=== PATIENT | male | born 1935 | race Caucasian/White ===

== ENCOUNTER 2017-07-22 14:37 | Observation (INO) ==
[2017-07-22 16:21] LABS: Basophils % 0.2 %; Eosinophils % 0.4 %; Hematocrit 33.5 % (37.5-50.1); Hemoglobin 11.3 g/dL (12.9-16.9); Immature Granulocytes % 0.3 % (0-4); Lymphocytes # 0.8 K/mcL (0.6-4.6); Mean Corpuscular HGB Conc 33.7 g/dL (31.6-35.5); Mean Corpuscular Hemoglobin 30.1 pg (28.0-33.3); Mean Corpuscular Volume 89.3 fL (83.0-100.0); Monocytes % 11.2 %; Neutrophils # 7.2 K/mcL (1.6-8.9); Platelet Count 193 K/mcL (140-400); Red Blood Count 3.75 M/mcL (4.19-5.50); Red Cell Distribution Width 14.7 % (11.5-14.5); Segmented Neutrophils % 78.9 %
[2017-07-22 16:53] LABS: Albumin 3.5 g/dL (3.5-5.7); Albumin/Globulin Ratio 1.3 (1.1-2.2); Bilirubin,Direct 0.2 mg/dL (0.0-0.2); Bilirubin,Indirect 0.7 mg/dL (0.0-1.2); Bilirubin,Total 0.9 mg/dL (0.3-1.0); Calcium 8.9 mg/dL (8.6-10.3); Globulin 2.6 g/dL (2.4-3.5); Potassium 4.7 mEq/L (3.5-5.1); Total Protein 6.1 g/dL (6.4-8.9)
[2017-07-22] MEDS ORDERED: 0.9 % Sodium Chloride 1,000 ML IVC ONE (17:33)
--- NOTE | 2017-07-22 17:51 | Emergency Department Note ---
Disposition Clinical Impression: Hyponatremia, Acute renal insufficiency Disposition: Admitted As Inpatient Condition: Good Referrals: Keyshawn Dillon MD [Primary Care Provider] - Time of Disposition: 17:30 General Adult HPI - General Chief complaint: ED Abdominal Pain Stated complaint: fall Time Seen by Provider: 07/22/17 14:41 Source: patient, EMS Mode of arrival: EMS Limitations: no limitations Nursing Notes Reviewed: Yes Vital Signs Reviewed: Yes - History of Present Illness HPI Narrative: 41-year-old male presents emergency department for further evaluation of multiple falls and cramping" and abdominal pain. Patient states he was moving a large piece of equipment onto his trailer 3 days ago when he had acute onset of pain to his right lower extremity. Patient fell to the ground but did not hit his head or have loss of consciousness. The pain in his leg improved within a few minutes and he was able to walk. Patient states that he has had cramping of the legs in the past. The day after moving this large piece of equipment the patient had pain to the right side of his abdomen, worse with movement and ambulation. Patient took a tramadol which helped significantly with his pain. Today the patient had not taken any pain medication prior to arrival. He has pain with ambulation and with movement however he does not have pain if remaining still or to palpation of his abdomen. Patient denies hematochezia, melena, fever, chills, chest pain, shortness of breath. Patient denies hitting his head or having loss of consciousness. Patient had another cramp in his legs today which causes him to fall to the ground, he again did not hit his head or have loss of consciousness. The cramping improved after a few seconds and he was then able to ambulate. Family encouraged him to be evaluated in the emergency department. Pain Scale: 7 - Related Data Previous Rx's Medication Instructions Recorded Colchicine [Colcrys] 0.6 mg PO Q12H #3 tablet 05/16/17 Tramadol HCl [Ultram] 50 mg PO Q8H PRN 3 Days #10 tab 05/16/17 Allergies Allergy/AdvReac Type Severity Reaction Status Date / Time No Known Allergies Allergy Verified 05/15/17 21:00 All systems ED: reviewed and negative except as stated. Review of Systems: As Per HPI Past Medical History - Past Medical History Attestation: Yes The following information was validated with the patient. Source: patient Medical history: Reports: arthritis, hypertension, other Psychiatric history: Reports: no psych history - Social History Smoking Status: Former smoker Smokeless Tobacco Status: Yes Alcohol use: Reports: none, occasionally Drug use: Reports: none Physical Exam General: Alert and in no acute distress Skin: Warm, dry, mild abrasion to the right posterior arm Head: Normocephalic and atraumatic Neck: Supple, trachea midline and no tenderness Cardiovascular: RRR, no murmur, normal perfusion Respiratory: CTAB, no wheezing, cough, or respiratory distress Musculoskeletal: Normal strength, no tenderness, swelling or deformity GI: Soft, nontender, nondistended. Bowel sounds present Neuro: A&O to person, place, time and situation. No focal deficits noted on exam Psychiatric: cooperative and appropriate mood and affect. - General Limitations: no limitations General appearance: alert, in no apparent distress Course Vital Signs Temperature 98.5 F 07/22/17 14:40 Pulse Rate 103 07/22/17 14:40 Respiratory Rate 14 07/22/17 14:40 Blood Pressure 111/49 07/22/17 14:40 O2 Sat by Pulse Oximetry 93 07/22/17 14:40 Temperature 98.5 F 07/22/17 14:40 Pulse Rate 59 07/22/17 16:56 Respiratory Rate 16 07/22/17 16:56 Blood Pressure 112/46 07/22/17 16:56 O2 Sat by Pulse Oximetry 98 07/22/17 16:56 Oxygen Delivery Oxygen Delivery Nasal Cannula Medical Decision Making - MDM Narrative Medical decision making narrative: Pain to the abdomen is likely muscular wall strain as he does not have pain with remaining still. There is no evidence of hernia on my exam. Vital signs are within normal limits. Laboratory evaluation was obtained secondary to the cramping which shows hyponatremia. I spoke with the nurse practitioner covering for Dr. Dillon who reported the renal function was within normal limits 2 months ago. She also states he had a sodium level of 144 2 months ago as well. Patient has a significant change his renal function. He may be dehydrated however we will give IV fluids and he will be admitted to the hospital for further care and evaluation. - Medical Records Medical records reviewed: Yes I reviewed the patient's medical records. - Lab Data Lab results reviewed: Yes I reviewed the patient's lab results. Result diagrams: 07/22/17 15:59 07/22/17 15:59 Lab Results 07/22/17 07/22/17 07/22/17 Range/Units 15:59 15:59 15:59 WBC 9.1 (4.3-11.1) K/mcL RBC 3.75 L (4.19-5.50) M/mcL Hgb 11.3 L (12.9-16.9) g/dL Hct 33.5 L (37.5-50.1) % MCV 89.3 (83.0-100.0) fL MCH 30.1 (28.0-33.3) pg MCHC 33.7 (31.6-35.5) g/dL RDW 14.7 H (11.5-14.5) % Plt Count 193 (140-400) K/mcL MPV 10.0 (9.4-12.4) fL Immature Gran % 0.3 (0-4) % Seg Neutrophils % 78.9 % Lymphocytes % 9.0 % Monocytes % 11.2 % Eosinophils % 0.4 % Basophils % 0.2 % Neutrophils # 7.2 (1.6-8.9) K/mcL Lymphocytes # 0.8 (0.6-4.6) K/mcL Monocytes # 1.0 (0.0-1.3) K/mcL Eosinophils # 0.0 (0.0-0.6) K/mcL Basophils # 0.0 (0.0-0.2) K/mcL Sodium 128 L (136-145) mEq/L Potassium 4.7 (3.5-5.1) mEq/L Chloride 98 (98-107) mEq/L Carbon Dioxide 23 (23-29) mEq/L BUN 21 (8-23) mg/dL Creatinine 1.72 H (0.70-1.30) mg/dL Est GFR ( Amer) 47 L (> 60) Est GFR (Non-Af Amer) 39 L (> 60) BUN/Creatinine Ratio 12 (6-26) Glucose 94 (70-105) mg/dL Calculated Osmolality 269 L (280-300) Calcium 8.9 (8.6-10.3) mg/dL Magnesium 1.9 (1.6-2.6) mg/dL Total Bilirubin (0.3-1.0) mg/dL Direct Bilirubin (0.0-0.2) mg/dL Indirect Bilirubin (0.0-1.2) mg/dL AST (13-39) Units/L ALT (7-52) Units/L Alkaline Phosphatase (34-104) Units/L Serum Total Protein (6.4-8.9) g/dL Albumin (3.5-5.7) g/dL Globulin (2.4-3.5) g/dL Albumin/Globulin Ratio (1.1-2.2) Lipase (11-82) Units/L 05/14/18 Range/Units 15:59 WBC (4.3-11.1) K/mcL RBC (4.19-5.50) M/mcL Hgb (12.9-16.9) g/dL Hct (37.5-50.1) % MCV (83.0-100.0) fL MCH (28.0-33.3) pg MCHC (31.6-35.5) g/dL RDW (11.5-14.5) % Plt Count (140-400) K/mcL MPV (9.4-12.4) fL Immature Gran % (0-4) % Seg Neutrophils % % Lymphocytes % % Monocytes % % Eosinophils % % Basophils % % Neutrophils # (1.6-8.9) K/mcL Lymphocytes # (0.6-4.6) K/mcL Monocytes # (0.0-1.3) K/mcL Eosinophils # (0.0-0.6) K/mcL Basophils # (0.0-0.2) K/mcL Sodium (136-145) mEq/L Potassium (3.5-5.1) mEq/L Chloride (98-107) mEq/L Carbon Dioxide (23-29) mEq/L BUN (8-23) mg/dL Creatinine (0.70-1.30) mg/dL Est GFR ( Amer) (> 60) Est GFR (Non-Af Amer) (> 60) BUN/Creatinine Ratio (6-26) Glucose (70-105) mg/dL Calculated Osmolality (280-300) Calcium (8.6-10.3) mg/dL Magnesium (1.6-2.6) mg/dL Total Bilirubin 0.9 (0.3-1.0) mg/dL Direct Bilirubin 0.2 (0.0-0.2) mg/dL Indirect Bilirubin 0.7 (0.0-1.2) mg/dL AST 19 (13-39) Units/L ALT 13 (7-52) Units/L Alkaline Phosphatase 67 (34-104) Units/L Serum Total Protein 6.1 L (6.4-8.9) g/dL Albumin 3.5 (3.5-5.7) g/dL Globulin 2.6 (2.4-3.5) g/dL Albumin/Globulin Ratio 1.3 (1.1-2.2) Lipase 22 (11-82) Units/L - Radiology Data Radiology results reviewed: Yes I reviewed the patient's radiology results. - EKG Data EKG #1 EKG attestation: Yes I reviewed and interpreted this EKG. EKG results narrative: Normal sinus rhythm with a rate of 78 with multiple PAC without evidence of STEMI.
--- NOTE | 2017-07-22 20:31 | Internal Med History&Physical ---
<Saúl Chang - Last Filed: 07/22/17 22:14> Date of Encounter: 07/22/17 Time of Encounter: 20:30 Internal Medicine - H&P: HPI Chief complaint: leg cramping with falls Admitted From: Emergency Dept Plans for Post Hospital Care: Home History of present illness: Mr. Pedroza is a 81 year old male with PMHx of HTN, essential tremors, presents to ED for evaluation of multiple falls, leg cramping, and abdominal pain. Patient reports that this is the first time that he is at the hospital. He has not seen a physician in a "long time". He was here 2 months ago for right leg swelling and synovial fluid at the time was negative for bacterial growth with many white blood cells. He reports that he was moving a large piece of equipment into his trailer 3 days ago when he had sudden right lower extremity pain. Patient fell to the ground but denies hitting his head or LOC. He reports that the pain in his leg improved within a few minutes and he was able to walk. He also reports abdominal pain preceding leg pain, worse with movement and ambulation. He denies f/c/n/v/c/diarrhea. Denies CP, SOB, cough, recent illness , dysuria, hematuria, melena, any bleeding. He states that fall was due to cramping in his legs today. Able to ambulate after fall and came to ED for evaluation. Past Med Surg Social Fam HX - Past Medical History Medical history: arthritis, hypertension, other Psychiatric history: no psych history - Past Surgical History Surgical History: no surgical history - Social History Smoking Status: Former smoker Smokeless Tobacco Status: Yes Alcohol use: occasionally Drug use: none Internal Medicine - H&P: Meds Tramadol HCl [Ultram] 50 mg PO Q8H PRN 3 Days #10 tab 05/16/17 [Rx] Aspirin [Lo-Dose Aspirin EC] 81 mg PO DAILY 07/22/17 [History] Lisinopril [Zestril] 5 mg PO DAILY 07/22/17 [History] Loratadine [Allergy Relief] 10 mg PO DAILY 07/22/17 [History] Multivit-Min/FA/Lycopen/Lutein [A Thru Z Select Men 50+ Tablet] 1 tab PO DAILY 07/22/17 [History] Primidone [Mysoline] 25 mg PO DAILY PRN 07/22/17 [History] Propranolol LA (24 HR) [Inderal LA] 60 mg PO DAILY 07/22/17 [History] Simvastatin [Zocor] 20 mg PO HS 07/22/17 [History] 3 Allergy/AdvReac Type Severity Reaction Status Date / Time No Known Allergies Allergy Verified 05/15/17 21:00 All Systems PM: A 10-system review of systems was performed and is negative for pertinent findings except as documented above in the HPI. - Constitutional Constitutional: no chills, no fever(s), no night sweats Additional comments: reports that he "does not get sick" - EENT Eyes: no change in vision, no discharge, no pain, no photophobia Ears: no ear discharge, no ear pain, no tinnitus Nose, mouth and throat: no dysphagia, no nasal discharge, no neck pain, no sore throat - Cardiovascular Cardiovascular ROS IM: no chest pain, no diaphoresis, no dyspnea, no lightheadedness, no palpitations, no syncope - Respiratory Respiratory: no cough, no dyspnea, no wheezing, no excessive phlegm production - Gastrointestinal Gastrointestinal: no abdominal pain, no diarrhea, no hematemesis, no hematochezia, no melena, no nausea, no vomiting - Musculoskeletal Musculoskeletal ROS IM: no numbness, no tingling - Integumentary Integumentary IM: no new lesions, no unusual bruising - Neurological Neurological ROS: no confusion, no convulsions, no focal weakness, no numbness, no tingling, no tremor(s) - Hematologic/Lymphatic Hematologic/Lymphatic: no easy bruising - Allergic/Immunologic Allergic/Immunologic: no itchy eyes, no uticaria, no wheezing, no lip swelling - Constitutional Vitals: Temp Pulse Resp BP Pulse Ox 97.8 F 64 17 139/54 100 07/22/17 19:14 07/22/17 19:14 07/22/17 19:14 07/22/17 19:14 07/22/17 19:14 General appearance: Present: A&O X 3, no acute distress, answers questions appropriately - Head Head exam: Present: atraumatic, normocephalic - Eye Eye exam: Present: EOMI, conjuntiva pink, sclera anicteric - Neck Neck exam general surgery: Present: full ROM, supple, trachea midline. Absent: lymphadenopathy - Respiratory Respiratory exam: Present: CTAB. Absent: accessory muscle use, rales, rhonchi, wheezes - Cardiovascular Cardiovascular exam: Present: RRR, +S1, +S2. Absent: diastolic murmur, gallop, rubs, systolic murmur - GI/Abdominal GI/Abdominal exam: Present: normal bowel sounds, soft, no peritoneal signs. Absent: distended, tenderness - Extremities Exam Extremities exam: Present: warm, radial pulses palpable and symmetrical. Absent : calf tenderness, cyanotic, pedal edema Additional comments: Upper extremities with many sun induced lesions - Neurological Exam Neurological exam: Present: alert, oriented X3, no focal deficits, strengths equal and symetr throughout. Absent: pronater drift, facial droop, speech deficit Additional comments: essential tremor noted. - Skin Skin exam: Present: dry, intact Internal Med - H&P Results - Labs CBC & Chem 7: 07/22/17 15:59 07/22/17 15:59 - Assessment and plan (1) Recurrent falls Current Visit: Yes Status: Acute (2) Hyponatremia Current Visit: Yes Status: Acute (3) Acute renal insufficiency Current Visit: Yes Status: Acute (4) Essential tremor Current Visit: Yes Status: Acute - Time Spent With Patient Total time spent is greater than 50% in coordination of care (as documented) at patient's floor/unit and/or counseling patient: Greater than 35 minutes <Deniz Bermeo P - Last Filed: 07/22/17 22:33> Date of Encounter: 07/22/17 Internal Medicine - H&P: HPI History of present illness: Mr. Pedroza is a 81 year old male All Systems PM: A 10-system review of systems was performed and is negative for pertinent findings except as documented above in the HPI. - Constitutional Vitals: Temp Pulse Resp BP Pulse Ox 97.8 F 64 17 139/54 100 07/22/17 19:14 07/22/17 19:14 07/22/17 19:14 07/22/17 19:14 07/22/17 19:14 Internal Med - H&P Results - Labs CBC & Chem 7: 07/22/17 15:59 07/22/17 15:59 - Attending Attestation I examined this patient and my medical decision-making was reviewed with the Resident Physician. I agree with the documented findings, disposition and treatment plan as described except to the extent set forth below. seen and examined agree with assessment and plan may get benefit from Neurology/nephrology evaluation - Assessment and plan (1) Hyponatremia Current Visit: Yes Status: Acute (2) Acute renal insufficiency Current Visit: Yes Status: Acute (3) Recurrent falls Current Visit: Yes Status: Acute (4) Essential tremor Current Visit: Yes Status: Acute - Time Spent With Patient Total time spent is greater than 50% in coordination of care (as documented) at patient's floor/unit and/or counseling patient:
[2017-07-22] MEDS ORDERED: Naloxone 0.4 MG/ML INJ IVP PRN (20:41)
[2017-07-22] MEDS ORDERED: Primidone 50 MG TABLET PO PRN (22:29)
[2017-07-22] MEDS: Acetaminophen 325 MG TABLET PO PRN (22:33)
[2017-07-22 23:57] LABS: Vitamin B12 251 pg/mL (250-1100)
[2017-07-23 00:39] LABS: Folate > 22.3 ng/mL (3.0-16.0)
[2017-07-23] MEDS: Acetaminophen 325 MG TABLET PO PRN (05:23)
[2017-07-23 05:41] LABS: Basophils % 0.6 %; Eosinophils # 0.3 K/mcL (0.0-0.6); Eosinophils % 4.1 %; Hematocrit 33.6 % (37.5-50.1); Hemoglobin 11.3 g/dL (12.9-16.9); Immature Granulocytes % 0.1 % (0-4); Lymphocytes # 1.9 K/mcL (0.6-4.6); Lymphocytes % 27.6 %; Mean Corpuscular HGB Conc 33.6 g/dL (31.6-35.5); Mean Corpuscular Hemoglobin 30.5 pg (28.0-33.3); Mean Corpuscular Volume 90.6 fL (83.0-100.0); Mean Platelet Volume 9.7 fL (9.4-12.4); Monocytes # 1.2 K/mcL (0.0-1.3); Monocytes % 17.4 %; Neutrophils # 3.5 K/mcL (1.6-8.9); Platelet Count 191 K/mcL (140-400); Red Blood Count 3.71 M/mcL (4.19-5.50); Red Cell Distribution Width 14.6 % (11.5-14.5); Segmented Neutrophils % 50.2 %
[2017-07-23 06:02] LABS: Calcium 8.8 mg/dL (8.6-10.3); Chol/HDL Ratio 2.9 (0-4.9); Potassium 4.6 mEq/L (3.5-5.1)
--- NOTE | 2017-07-23 08:16 | Neurology - Consult Note ---
Date of Encounter: 07/23/17 Time of Encounter: 08:11 Assessment and Plan (1) Recurrent falls Current Visit: Yes Status: Acute The patient at this point feels that his falls were due to cramping in the legs , and left knee pain. I would however like to rule out the possibility of a small infarct. I do not believe that he had syncope or seizure. At this juncture he does not look to be parkinsonian. He will continue to follow with Dr. Armas after the hospitalization for ongoing treatment of his essential tremor. I will obtain an MRI scan of the brain. Further recommendations will be made pending the outcome of the MRI. History of Present Illness HPI: The chart was reviewed, patient was seen and examined. Gokul Pedroza is a very pleasant 81-year-old male who is being seen for neurologic consultation secondary to several recent falls. He is currently under the care of my associate Dr. Armas for essential tremors. However he has had 2 falls in as many days. He blamed the falls however on charley horses in his legs. And also has complaints of right knee pain. He denied any numbness tingling or paresthesias of the face arms or legs, denied headache, denied any sudden visual changes. He is alert and oriented follows commands and answers questions appropriately. He gives a fairly lucid history. Past Med Surg Social Fam HX - Past Medical History Medical history: arthritis, hypertension, other Psychiatric history: no psych history - Past Surgical History Surgical History: no surgical history - Social History Smoking Status: Former smoker Smokeless Tobacco Status: Yes Alcohol use: occasionally Drug use: none Medications and Allergies Tramadol HCl [Ultram] 50 mg PO Q8H PRN 3 Days #10 tab 05/16/17 [Rx] Aspirin [Lo-Dose Aspirin EC] 81 mg PO DAILY 07/22/17 [History] Lisinopril [Zestril] 5 mg PO DAILY 07/22/17 [History] Loratadine [Allergy Relief] 10 mg PO DAILY 07/22/17 [History] Multivit-Min/FA/Lycopen/Lutein [A Thru Z Select Men 50+ Tablet] 1 tab PO DAILY 07/22/17 [History] Primidone [Mysoline] 25 mg PO DAILY PRN 07/22/17 [History] Propranolol LA (24 HR) [Inderal LA] 60 mg PO DAILY 07/22/17 [History] Simvastatin [Zocor] 20 mg PO HS 07/22/17 [History] 3 Allergy/AdvReac Type Severity Reaction Status Date / Time No Known Allergies Allergy Verified 05/15/17 21:00 All Systems: The remainder of the systems were reviewed and are negative Review of Systems: The balance of the systems review is negative. Physical Examination - Vital Signs Vital Signs: Initial Vital Signs Temp Pulse Resp BP Pulse Ox 98.5 F 103 14 111/49 93 07/22/17 14:40 07/22/17 14:40 07/22/17 14:40 07/22/17 14:40 07/22/17 14:40 - Neurologic Detailed motor examination: grossly full strength in all extremities (He does have occasional resting tremor of the left upper extremity, but he also has intention tremor upon finger to nose testing. He does not look parkinsonian.), full strength in all major muscle groups Detailed sensory examination: intact Reflex and gait examination: other (Deep tendon reflexes are 2/4 symmetrically of the upper and lower extremities throughout. No long tract signs are present. ) Mental Status Examination: awake, alert, oriented to person, oriented to place, oriented to time, follows commands appropriately, answers questions appropriately, no agnosia, no aphasia, no aproxia Cranial nerve examination: PERRL, EOMI, visual schumacher intact, corneal reflexes brisk symmetrically, sensory to face intact, mastication intact, no facial asymmetry is present, no dysarthria, hearing is intact symmetrically, soft palate elevates bilaterally upon phonation, gag reflex intact, flexes SCM and trapezius muscles symmetrically with full power, tongue protrudes midline, no atrophy or facial fasiculations present Cerebellar examination: no dysmetria Results - Laboratory Findings CBC and BMP: 07/23/17 04:46 07/23/17 04:46 Abnormal lab findings: Abnormal lab results RBC 3.71 M/mcL (4.19-5.50) L 07/23/17 04:46 Hgb 11.3 g/dL (12.9-16.9) L 07/23/17 04:46 Hct 33.6 % (37.5-50.1) L 07/23/17 04:46 RDW 14.6 % (11.5-14.5) H 07/23/17 04:46 Sodium 131 mEq/L (136-145) L 07/23/17 04:46 BUN 24 mg/dL (8-23) H 07/23/17 04:46 Creatinine 1.64 mg/dL (0.70-1.30) H 07/23/17 04:46 Est GFR ( Amer) 49 (> 60) L 07/23/17 04:46 Est GFR (Non-Af Amer) 41 (> 60) L 07/23/17 04:46 Calculated Osmolality 275 (280-300) L 07/23/17 04:46 B-Natriuretic Peptide 403 pg/mL (Less than 100) H 07/23/17 04:46 Serum Total Protein 6.1 g/dL (6.4-8.9) L 07/22/17 15:59 HDL Cholesterol 38 mg/dL (40-59) L 07/23/17 04:46 Folate > 22.3 ng/mL (3.0-16.0) H 07/22/17 23:01 Consult Discharge Plan - Plan Referrals: Keyshawn Dillon MD [Primary Care Provider] -
[2017-07-23] MEDS ORDERED: Propranolol LA (24 HR) 60 MG CAP.SA.24H PO SCH (09:00)
[2017-07-23] MEDS: Aspirin Enteric Coated 81 MG Tablet PO SCH (09:21)
[2017-07-23] MEDS ORDERED: *HR* OxyCODONE/APAP 5/325 TABLET PO PRN (12:25)
[2017-07-23] MEDS: traMADol 50 MG TABLET PO PRN ×2 (14:27→20:25)
[2017-07-23 15:53] LABS: Bilirubin,Urine Negative (Negative); Blood,Urine Negative (Negative); Clarity,Urine Clear (Clear); Color,Urine Yellow (Yellow); Glucose,Urine (UA) Normal (Normal); Ketones,Urine Negative (Negative); Leukocyte Esterase,Urine Small (Negative); Nitrite,Urine Negative (Negative); PH,Urine 5.5 pH Units (5.0-8.0); Protein,Urine Negative (Neg-Trace); Specific Gravity,Urine 1.017 (1.010-1.025); Urobilinogen,Urine Normal (Normal)
--- NOTE | 2017-07-23 16:35 | Electrocardiograph Report ---
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[employer]: [employer] : 1935 Requested By: Carmine Hollis Order Number: [id number] Reading MD: Sammi Cunningham Measurements Intervals [place] Rate: 78 P: NE: 0 QRS: -56 QRSD: 104 T: 4 QT: 361 QTc: 394 Interpretive Statements ATRIAL FIBRILLATION LOW QRS VOLTAGE IN PRECORDIAL LEADS [QRS DEFLECTION < 1.0 mV IN CHEST LEADS] POSSIBLE RIGHT VENTRICULAR CONDUCTION DELAY [RSR (QR) IN V1/V2] INFERIOR MYOCARDIAL INFARCTION [40+ ms Q WAVE AND/OR ST/T ABNORMALITY IN II/aVF], OF INDETERMINATE AGE ANTEROLATERAL MYOCARDIAL INFARCTION [40+ ms Q WAVE IN I/aVL/V3-V6], OF INDETERMINATE AGE Electronically Signed On 07-23-2017 16:33:31 EDT by Sammi Cunningham
--- NOTE | 2017-07-23 17:54 | Internal Med Progress Note ---
Date of Encounter: 07/23/17 Time of Encounter: 12:15 - Assessment and plan (1) Hyponatremia Current Visit: Yes Status: Acute Assessment and plan: Due to dehydration improving will start gentle hydration (2) Acute renal insufficiency Current Visit: Yes Status: Acute Assessment and plan: VIKTOR vs CKD-3 No previous labs to compare cont IV hydration (3) Recurrent falls Current Visit: Yes Status: Acute Assessment and plan: Need to r/o CVA Neuro consulted Reocmmend MRI of Head Pt was unable to lie down flat due to his back pain will give him pain meds and try again in the morning (4) Essential tremor Current Visit: Yes Status: Acute Assessment and plan: Held propranolol due to bradycardia (5) Bradycardia Current Visit: Yes Status: Acute Assessment and plan: Reviewed tele strip 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 Pedroza is a 81 year old male with PMHx of HTN, essential tremors, presents to ED for evaluation of multiple falls, leg cramping, and abdominal pain. Patient reports that this is the first time that he is at the hospital. He has not seen a physician in a "long time". He was here 2 months ago for right leg swelling and synovial fluid at the time was negative for bacterial growth with many white blood cells. He reports that he was moving a large piece of equipment into his trailer 3 days ago when he had sudden right lower extremity pain. Patient fell to the ground but denies hitting his head or LOC. He reports that the pain in his leg improved within a few minutes and he was able to walk. Pt is alert, awake and O x 3. Denied any CP / SOB. - Constitutional Vitals: Temp Pulse Resp BP Pulse Ox 97.9 F 62 16 127/69 99 07/23/17 16:15 07/23/17 16:15 07/23/17 16:15 07/23/17 16:15 07/23/17 16:15 General appearance: Present: A&O X 3, no acute distress, answers questions appropriately - Head Head exam: Present: atraumatic, normal inspection - Neck Neck exam general surgery: Present: supple - Respiratory Respiratory exam: Present: decreased breath sounds. Absent: rales, respiratory distress, rhonchi, wheezes - Cardiovascular Cardiovascular exam: Present: RRR, +S1, +S2. Absent: tachycardia - GI/Abdominal GI/Abdominal exam: Present: normal bowel sounds, soft. Absent: rebound, rigid, tenderness - Extremities Exam Extremities exam: Absent: calf tenderness, pedal edema, tenderness - Back Exam Back exam: Absent: CVA tenderness (L), CVA tenderness (R) - Neurological Exam Neurological exam: Present: alert, oriented X3 - Psychiatric Psychiatric exam: Present: normal affect, normal mood Internal Medicine: Result - Labs CBC & Chem 7: 07/23/17 04:46 07/23/17 04:46 Labs: Short CBC 07/23/17 Range/Units 04:46 WBC 6.9 (4.3-11.1) K/mcL Hgb 11.3 L (12.9-16.9) g/dL Hct 33.6 L (37.5-50.1) % Plt Count 191 (140-400) K/mcL Neutrophils # 3.5 (1.6-8.9) K/mcL BMP 07/23/17 04:46 Sodium 131 L Potassium 4.6 Chloride 101 Carbon Dioxide 24 BUN 24 H Creatinine 1.64 H Glucose 86 Calcium 8.8 Urine 07/23/17 Range/Units 15:18 Urine Color Yellow (Yellow) Urine Clarity Clear (Clear) Urine pH 5.5 (5.0-8.0) pH Units Ur Specific [place] 1.017 (1.010-1.025) Urine Protein Negative (Neg-Trace) mg/dL Urine Glucose (UA) Normal (Normal) mg/dL Consult Discharge Plan - Plan Referrals: Keyshawn Dillon MD [Primary Care Provider] -
[2017-07-23] MEDS ORDERED: 0.9 % Sodium Chloride 1,000 ML IVC SCH (18:00)
[2017-07-24 06:27] LABS: Basophils % 0.5 %; Eosinophils # 0.2 K/mcL (0.0-0.6); Eosinophils % 4.2 %; Hematocrit 34.1 % (37.5-50.1); Hemoglobin 11.3 g/dL (12.9-16.9); Immature Granulocytes % 0.2 % (0-4); Lymphocytes # 1.6 K/mcL (0.6-4.6); Lymphocytes % 28.3 %; Mean Corpuscular HGB Conc 33.1 g/dL (31.6-35.5); Mean Corpuscular Hemoglobin 29.7 pg (28.0-33.3); Mean Corpuscular Volume 89.7 fL (83.0-100.0); Mean Platelet Volume 10.1 fL (9.4-12.4); Monocytes # 0.8 K/mcL (0.0-1.3); Monocytes % 15.2 %; Neutrophils # 2.9 K/mcL (1.6-8.9); Platelet Count 197 K/mcL (140-400); Red Cell Distribution Width 14.6 % (11.5-14.5); Segmented Neutrophils % 51.6 %
[2017-07-24 06:47] LABS: BUN/Creatinine Ratio 16 (6-26); Blood Urea Nitrogen 18 mg/dL (8-23); Calcium 8.6 mg/dL (8.6-10.3); Carbon Dioxide 24 mEq/L (23-29); Chloride 105 mEq/L (98-107); Glucose 89 mg/dL (70-105); Osmolality,Calculated 279 (280-300); Potassium 4.4 mEq/L (3.5-5.1); Sodium 134 mEq/L (136-145); eGFR For African Americans > 60 (> 60); eGFR For Non-African Americans > 60 (> 60)
[2017-07-24] MEDS: Aspirin Enteric Coated 81 MG Tablet PO SCH (09:50)
--- NOTE | 2017-07-24 09:53 | Neurology Progress Note ---
<Jersey Mckeon - Last Filed: 07/24/17 10:14> Date of Encounter: 07/24/17 Time of Encounter: 09:46 Assessment and Plan (1) Recurrent falls Current Visit: Yes Status: Acute Patient was unable to lie flat to complete MRI. Order changed to CT head with thin cuts through posterior fossa to rule out cerebellar infarction. Further recommendations pending results. Subjective Principal diagnosis: Fall Interval history: Patient reports no interval change in symptoms. His only complaint is of abdominal muscle tightness and pain when he tries to lay flat. He was unable to complete MRI yesterday because of this. Objective - Constitutional Vitals: Temp Pulse Resp BP Pulse Ox 98.2 F 57 18 150/66 95 07/24/17 06:49 07/24/17 06:49 07/24/17 06:49 07/24/17 06:49 07/24/17 06:49 - Neurological Exam Motor Examination: Present: grossly full strength in all extremities (He does have occasional resting tremor of the left upper extremity, but he also has intention tremor upon finger to nose testing. He does not look parkinsonian.), full strength in all major muscle groups Sensation intact: Present: intact Reflex and gait examination: other (Deep tendon reflexes are 2/4 symmetrically of the upper and lower extremities throughout. No long tract signs are present. ) Mental Status Examination: Present: awake, alert, oriented to person, oriented to place, oriented to time, follows commands appropriately, answers questions appropriately, no agnosia, no aphasia, no aproxia Cranial nerve examination: Present: PERRL, EOMI, visual schumacher intact, corneal reflexes brisk symmetrically, sensory to face intact, mastication intact, no facial asymmetry is present, no dysarthria, hearing is intact symmetrically, soft palate elevates bilaterally upon phonation, gag reflex intact, flexes SCM and trapezius muscles symmetrically with full power, tongue protrudes midline, no atrophy or facial fasiculations present Cerebellar examination: Present: no dysmetria - Other Additional findings: CONSTITUTIONAL: Well-developed and well-nourished. Comfortable and in no acute distress. CARDIOVASCULAR: Regular rate and rhythm. +S1 and S2. CHEST: Normal work of breathing. NEURO: Mental Status: Alert and oriented x3. Follows commands and answers questions. Cranial Nerves: PERRL. EOMI. Visual schumacher intact. Symmetrical facial strength. Facial sensation intact. No dysarthria. Hearing intact. Soft palate elevates symmetrically. SCM and trapezius without weakness. Tongue protrudes in midline. Motor: Left - 5/5 in upper and lower extremities. R - 5/5 in upper and lower extremities. Sensation intact. Benign essential tremor noted. Results - Laboratory Findings CBC and BMP: 07/24/17 05:23 07/24/17 05:23 Abnormal lab findings: Abnormal lab results RBC 3.80 M/mcL (4.19-5.50) L 07/24/17 05:23 Hgb 11.3 g/dL (12.9-16.9) L 07/24/17 05:23 Hct 34.1 % (37.5-50.1) L 07/24/17 05:23 RDW 14.6 % (11.5-14.5) H 07/24/17 05:23 Sodium 134 mEq/L (136-145) L 07/24/17 05:23 Calculated Osmolality 279 (280-300) L 07/24/17 05:23 B-Natriuretic Peptide 403 pg/mL (Less than 100) H 07/23/17 04:46 Serum Total Protein 6.1 g/dL (6.4-8.9) L 07/22/17 15:59 HDL Cholesterol 38 mg/dL (40-59) L 07/23/17 04:46 Folate > 22.3 ng/mL (3.0-16.0) H 07/22/17 23:01 Ur Leukocyte Esterase Small (Negative) H 07/23/17 15:18 Urine Osmolality 289 mOsm/kg (300-1090) L 07/23/17 15:18 Consult Discharge Plan - Plan Referrals: Keyshawn Dillon MD [Primary Care Provider] - <Jenaro Martino - Last Filed: 07/24/17 16:52> Date of Encounter: 07/24/17 Time of Encounter: 16:49 Assessment and Plan (1) Recurrent falls Current Visit: Yes Status: Acute The case was discussed with the attending hospitalist. At this juncture I see no evidence to some suspect an acute infarct. I believe that this patient is stable enough neurologically to be transferred to another facility for ongoing therapy. You may discharge him at your discretion. Subjective Interval history: The chart was reviewed, the patient was seen and examined independently. I agree with the assessment of Dr. Alberto as stated above. Unfortunately he was not able to complete the CT scan of the brain either. However he has not really had any strokelike symptoms since admit. He is adamant that the weakness of the lower extremities was due to cramping in Marciano horse pain in conjunction with right knee pain. He denies any visual changes, denies any nausea vomiting, denies any ataxia or weakness of the upper extremities. Denies headache. Objective - Constitutional Vitals: Temp Pulse Resp BP Pulse Ox 97.6 F 52 18 129/66 98 07/24/17 15:49 07/24/17 15:49 07/24/17 15:49 07/24/17 15:49 07/24/17 15:49 Results - Laboratory Findings CBC and BMP: 07/24/17 05:23 07/24/17 05:23 Abnormal lab findings: Abnormal lab results RBC 3.80 M/mcL (4.19-5.50) L 07/24/17 05:23 Hgb 11.3 g/dL (12.9-16.9) L 07/24/17 05:23 Hct 34.1 % (37.5-50.1) L 07/24/17 05:23 RDW 14.6 % (11.5-14.5) H 07/24/17 05:23 Sodium 134 mEq/L (136-145) L 07/24/17 05:23 Calculated Osmolality 279 (280-300) L 07/24/17 05:23 B-Natriuretic Peptide 403 pg/mL (Less than 100) H 07/23/17 04:46 Serum Total Protein 6.1 g/dL (6.4-8.9) L 07/22/17 15:59 HDL Cholesterol 38 mg/dL (40-59) L 07/23/17 04:46 Folate > 22.3 ng/mL (3.0-16.0) H 07/22/17 23:01 Ur Leukocyte Esterase Small (Negative) H 07/23/17 15:18 Urine Osmolality 289 mOsm/kg (300-1090) L 07/23/17 15:18
[2017-07-24 15:51] VITALS: BP 129/66
--- NOTE | 2017-07-24 16:14 | Discharge Summary ---
- NOTES TO OUTPATIENT PROVIDER Notes to Outpatient Provider: f/u with PCP in one week. staop taking your tremor medication Propranolol due to bradycardia Orders not resulted at time of discharge: Pending orders 07/22/17 23:01 MMA (VIT B12 STATUS) Routine 07/24/17 10:12 CT head/brain wo con [CT] Routine Date of Encounter: 07/24/17 Time of Encounter: 16:09 - Discharge Diagnosis (1) Hyponatremia Priority: Primary Status: Acute (2) Acute renal insufficiency Priority: Primary Status: Acute (3) Recurrent falls Priority: Primary Status: Acute (4) Essential tremor Priority: Secondary Status: Acute (5) Bradycardia Priority: Secondary Status: Acute Hospital course: Mr. Pedroza is a 81 year old male with PMHx of HTN, essential tremors, presents to ED for evaluation of multiple falls, leg cramping, and abdominal pain. Patient reports that this is the first time that he is at the hospital. He has not seen a physician in a "long time". He was here 2 months ago for right leg swelling and synovial fluid at the time was negative for bacterial growth with many white blood cells. He reports that he was moving a large piece of equipment into his trailer 3 days ago when he had sudden right lower extremity pain. Patient fell to the ground but denies hitting his head or LOC. He reports that the pain in his leg improved within a few minutes and he was able to walk. Pt was admitted in the hospital and placed him on secured entrance monitor. His Na was little low and he was in VIKTOR with possible CKD-2, so started him on IV hydration. His Cr improved to 1.16 and Na also improved to 134. Pt was evaluated by Neurology Dr. Martino who recommended MRI of brain for further work up, however pt was not able to lie flat for the testing due to his chronic low back pain. Pt refused for Ct of Head too. He was not able to tolerate the 2 D Echo too. Pt denied any syncopal episode. He does have worsening physical deconditioning, so requested for PT / OT eval. PT / OT suggested for short term rehab at in pt rehab unit. So will d.c him to rehab today in stable condition. 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 - Time Spent with Patient Total time spent providing and/or coordinating discharge services: - Discharge Medications Home Medications: Tramadol HCl [Ultram] 50 mg PO Q8H PRN 3 Days #10 tab 05/16/17 [Rx] Aspirin [Lo-Dose Aspirin EC] 81 mg PO DAILY 07/22/17 [History] Lisinopril [Zestril] 5 mg PO DAILY 07/22/17 [History] Loratadine [Allergy Relief] 10 mg PO DAILY 07/22/17 [History] Multivit-Min/FA/Lycopen/Lutein [A Thru Z Select Men 50+ Tablet] 1 tab PO DAILY 07/22/17 [History] Primidone [Mysoline] 25 mg PO DAILY PRN 07/22/17 [History] Propranolol LA (24 HR) [Inderal LA] 60 mg PO DAILY 07/22/17 [History] Simvastatin [Zocor] 20 mg PO HS 07/22/17 [History] Allergies/Adverse Reactions: 3 Allergy/AdvReac Type Severity Reaction Status Date / Time No Known Allergies Allergy Verified 05/15/17 21:00 Date of admission: 07/22/17 17:49 Primary care physician: Keyshawn Dillon MD Consults: 07/22/17 22:38 Consult to Neurology [CONS] Routine Consulting Provider: Neurology [facility] Reason for Consult: recurrent falls Call Completed: No 07/22/17 22:39 Consult to Nephrology [CONS] Routine Consulting Provider: Saúl Chang Reason for Consult: recurrent falls in the onset of kidney disease, no previous labs. Call Completed: No 07/23/17 12:34 Consult to Occupational Therapy [CONS] Routine Comment: Evaluate, develop and implement POC Reason for Consult: discharge planning; recent falls; Does patient have active BEDREST order?: No Is patient medically & hemodynamically stable?: Yes Consult to Physical Therapy [CONS] Routine Comment: Evaluate, develop and implement POC Reason for Consult: discharge planning; recent falls; Does patient have active BEDREST order?: No Is patient medically & hemodynamically stable?: Yes 07/24/17 07:20 Consult to Neurology Technician [CONS] Routine Reason for SW Consult: needs ecf - Constitutional Vitals: Temp Pulse Resp BP Pulse Ox 97.6 F 52 18 129/66 98 07/24/17 15:49 05/16/18 15:49 07/24/17 15:49 07/24/17 15:49 07/24/17 15:49 General appearance: Present: A&O X 3, no acute distress, answers questions appropriately - Head Head exam: Present: atraumatic, normal inspection - Neck Neck exam general surgery: Present: supple - Respiratory Respiratory exam: Present: decreased breath sounds. Absent: rales, respiratory distress, rhonchi, wheezes - Cardiovascular Cardiovascular exam: Present: RRR, +S1, +S2. Absent: tachycardia - GI/Abdominal GI/Abdominal exam: Present: normal bowel sounds, soft. Absent: rebound, rigid, tenderness - Extremities Exam Extremities exam: Absent: calf tenderness, pedal edema, tenderness - Neurological Exam Neurological exam: Present: alert, CN II-XII intact, oriented X3, reflexes normal, no focal deficits, strengths equal and symetr throughout. Absent: pronater drift, facial droop, speech deficit - Psychiatric Psychiatric exam: Present: normal affect, normal mood - Patient Status Disposition: Transfer Inpatient Rehab Fac Condition: Good Overall status at discharge: patient is back to baseline - Discharge Instructions Follow Up With: Keyshawn Dillon MD [Primary Care Provider] - Forms: ED Satisfaction Letter, Work/School Release - Diet and Activity Activity: as per physical therapy, increase activity as tolerated Diet: low salt diet - VTE Documentation of Mechanical Device: Intermittent pneumatic compression device
--- NOTE | 2017-07-24 16:18 | Physician Discharge Referral ---
ExtendedCare Referral Info Transfer To: [facility] - Diagnosis (1) Hyponatremia Status: Acute (2) Acute renal insufficiency Status: Acute (3) Recurrent falls Status: Acute (4) Essential tremor Status: Acute (5) Bradycardia Status: Acute - Transfer Medications Home Medications: Tramadol HCl [Ultram] 50 mg PO Q8H PRN 3 Days #10 tab 05/16/17 [Rx] Aspirin [Lo-Dose Aspirin EC] 81 mg PO DAILY 07/22/17 [History] Lisinopril [Zestril] 5 mg PO DAILY 07/22/17 [History] Loratadine [Allergy Relief] 10 mg PO DAILY 07/22/17 [History] Multivit-Min/FA/Lycopen/Lutein [A Thru Z Select Men 50+ Tablet] 1 tab PO DAILY 07/22/17 [History] Primidone [Mysoline] 25 mg PO DAILY PRN 07/22/17 [History] Propranolol LA (24 HR) [Inderal LA] 60 mg PO DAILY 07/22/17 [History] Simvastatin [Zocor] 20 mg PO HS 07/22/17 [History] Allergies/Adverse Reactions: 3 Allergy/AdvReac Type Severity Reaction Status Date / Time No Known Allergies Allergy Verified 05/15/17 21:00 - Respiratory Orders Smoking Cessation: Smoking cessation has been advised. For more information, call the [place] Tobacco Quit Line at 2-853-VVIQNOW. CERTIFICATION: I certify that the transfer of the above named patient to an Extended Care Facility is necessary for the continuing treatment of the diagnosis listed. The above information is true and accurate reflection of patient's current condition. Confidential - Redisclosure prohibited without a patient's written consent.
== END 2017-07-24 18:00 ==
LOC: 2ANU 14:37 → EMEROO 14:37 → 2ANU 18:41 → SUATTDRO 21:33
PROVIDERS: ADMIT Family Medicine; ATTEND Family Medicine